=== PATIENT | female | born 1945 | race Two or more races ===

== ENCOUNTER 2024-01-21 10:41 | Inpatient (IN) | payer MEDICARE ==
[~2024-01-21] VITALS: Ht 170.2 cm; Wt 72.6 kg
[2024-01-21] MEDS ORDERED: MIRT-121 PO (12:08)
[2024-01-21] MEDS ORDERED: ASCO-352 PO (12:08)
[2024-01-21] MEDS ORDERED: DILT60TA35 PO (12:08)
[2024-01-21] MEDS ORDERED: MEGE400O6 PO (12:08)
[2024-01-21] MEDS ORDERED: POLY119P3 PO (12:08)
[2024-01-21] MEDS ORDERED: HALO1TAB PO (12:08)
[2024-01-21] MEDS ORDERED: DIVA125T32 PO (12:08)
[2024-01-21] MEDS ORDERED: MULT-594 PO (12:08)
[2024-01-21] MEDS ORDERED: BENZ0.5T43 PO (12:08)
[2024-01-21] MEDS ORDERED: HALO2TAB PO (12:08)
[2024-01-21] MEDS ORDERED: CHOL200026 PO (12:08)
[2024-01-21] MEDS ORDERED: OLAN10TA3 PO (12:08)
[2024-01-21] MEDS ORDERED: HYDR-4076 PO (12:08)
[2024-01-21] MEDS ORDERED: TRAM50TA2 PO (12:08)
[2024-01-21] MEDS ORDERED: ROSU10TA2 PO (12:08)
[2024-01-21] MEDS ORDERED: HALO5TAB PO (12:08)
[2024-01-21] MEDS ORDERED: MELA3TAB41 PO (12:08)
[2024-01-21] MEDS ORDERED: RIVA10TA PO (12:08)
[2024-01-21] MEDS ORDERED: ACET-2030 PO (12:08)
[2024-01-21] MEDS ORDERED: clonazePAM 0.5 MG TABLET PO PRN (12:30)
[2024-01-21] MEDS ORDERED: MAGNESIUM HYDROXIDE 30 ML UDC PO PRN (12:30)
[2024-01-21] MEDS ORDERED: MAG HYDROX/AL HYDROX/SIMETH 30 ML UDC PO PRN (12:30)
[2024-01-21] MEDS: BLOOD SUGAR DIAGNOSTIC 1 EACH STRIP IN ONE (12:47)
[2024-01-21] MEDS ORDERED: ACETAMINOPHEN ES 500 MG TABLET PO PRN (14:30)
[2024-01-21] MEDS: ASCORBIC ACID 500 MG TABLET PO SCH (15:01)
[2024-01-21 16:00] VITALS: BP 116/77; TEMP 98; O2SAT 100
[2024-01-21] MEDS: MEGESTROL ACETATE SUSP 400 MG/10 ML UDC PO SCH (17:47)
[2024-01-21] MEDS: hydrALAZINE HCL 25 MG TABLET PO SCH (17:48)
[2024-01-21] MEDS: DILTIAZEM HCL 30 MG TABLET PO SCH (18:10)
[2024-01-21 20:00] VITALS: BP 136/75; TEMP 97.6; O2SAT 99
[2024-01-22 07:45] LABS: CREATININE 0.5 mg/dL (0.6-1.3)
[2024-01-22 07:58] LABS: ALANINE AMINOTRANSFERASE 17 U/L (12-78); ALBUMIN 2.1 g/dL (3.4-5.0); ALKALINE PHOSPHATASE 53 U/L (46-116); ASPARTATE AMINOTRANSFERASE 12 U/L (15-37); BILIRUBIN,TOTAL 0.2 mg/dL (0.2-1.0); CALCIUM, SERUM 8.9 mg/dL (8.5-10.1); CARBON DIOXIDE 24 mmol/L (21-32); CHLORIDE 106 mmol/L (98-107); CREATININE 0.4 mg/dL (0.6-1.3); GLUCOSE 128 mg/dL (74-106); POTASSIUM 3.4 mmol/L (3.5-5.1); SODIUM SERUM 140 mmol/L (136-145); TOTAL PROTEIN, SERUM 6.6 g/dL (6.4-8.2); UREA NITROGEN, BLOOD 13 mg/dL (7-18)
[2024-01-22 08:20] LABS: CHOLESTEROL 70 mg/dL (<200); HDL CHOLESTEROL 40 mg/dL (40-60); LDL 22 mg/dL (0-99); TRIGLYCERIDES 33 mg/dL (30-150)
[2024-01-22] MEDS: ATORVASTATIN 40 MG TABLET PO SCH (08:42)
[2024-01-22] MEDS: CHOLECALCIFEROL 1,000 UNIT TABLET (VIT D3) PO SCH (08:42)
[2024-01-22] MEDS: POLYETHYLENE GLYCOL 3350 17 GM POWD.PACK PO SCH (08:42)
[2024-01-22] MEDS: MULTIVITAMINS,THERAGRAN 1 UDTAB TABLET PO SCH (08:43)
[2024-01-22 08:49] VITALS: BP 112/99; TEMP 98.6; O2SAT 97
[2024-01-22] MEDS: OLANZAPINE ZYDIS 5 MG TAB.RAPDIS SL SCH (09:40)
[2024-01-22] MEDS ORDERED: Z GUARD REMEDY 4 OZ OINT TP PRN (10:00)
[2024-01-22] MEDS: Z GUARD REMEDY 4 OZ OINT TP SCH (10:50)
[2024-01-22] MEDS: BLOOD SUGAR DIAGNOSTIC 1 EACH STRIP IN SCH (12:00)
[2024-01-22] MEDS ORDERED: DEXTROSE 50%-WATER 50 ML DISP.SYRIN IV PRN (12:00)
[2024-01-22 16:00] VITALS: BP 109/60; TEMP 97.6; O2SAT 98
[2024-01-22] MEDS: RIVAROXABAN 10 MG TABLET PO SCH (16:50)
[2024-01-22 20:00] VITALS: BP 130/81; TEMP 98.4; O2SAT 99
[2024-01-22] MEDS: MIRTAZAPINE 15 MG TABLET PO SCH (21:36)
[2024-01-22] MEDS: INSULIN REGULAR, HUMAN 100 UNIT/ML 3 ML VIAL SQ PRN (22:19)
[2024-01-23 07:34] LABS: CALCIUM, SERUM 9.4 mg/dL (8.5-10.1); CARBON DIOXIDE 25 mmol/L (21-32); CHLORIDE 106 mmol/L (98-107); CREATININE 0.5 mg/dL (0.6-1.3); GLUCOSE 116 mg/dL (74-106); POTASSIUM 3.9 mmol/L (3.5-5.1); SODIUM SERUM 141 mmol/L (136-145); UREA NITROGEN, BLOOD 9 mg/dL (7-18)
[2024-01-23 07:41] LABS: BASOPHILS % (AUTO) 0.4 % (0.0-2.0); EOSINOPHILS # (AUTO) 0.1 K/uL (0.0-0.7); EOSINOPHILS % (AUTO) 1.4 % (0.0-6.0); HEMATOCRIT 32 % (33-45); HEMOGLOBIN 10.6 g/dL (11.5-14.8); LYMPHOCYTES # (AUTO) 1.8 K/uL (0.8-4.8); LYMPHOCYTES % (AUTO) 27.2 % (20.0-44.0); MEAN CORPUSCULAR HEMOGLOBIN 30 PG (26.0-33.0); MEAN CORPUSCULAR HGB CONC 33 g/dl (31.0-36.0); MEAN CORPUSCULAR VOLUME 92 fL (82-100); MONOCYTES # (AUTO) 0.5 K/uL (0.1-1.30); MONOCYTES % (AUTO) 7.3 % (2.0-12.0); NEUTROPHILS # (AUTO) 4.1 K/uL (1.8-8.9); NEUTROPHILS % (AUTO) 63.7 % (43.0-81.0); PLATELET COUNT (AUTO) 464 K/uL (150-450); RED BLOOD CELL COUNT(AUTO) 3.52 MIL/uL (4.0-5.2); RED CELL DISTRIBUTION WIDTH 18.3 % (11.5-15.0); WHITE BLOOD COUNT (AUTO) 6.4 K/uL (4.3-11.0)
[2024-01-23 08:00] VITALS: BP 122/77; TEMP 98; O2SAT 97
[2024-01-23] MEDS: THERAHONEY GEL 1.5 OZ TUBE TP SCH (08:55)
[2024-01-23 16:00] VITALS: BP 133/64; TEMP 98.1; O2SAT 100
[2024-01-23 20:00] VITALS: BP 122/65; TEMP 98.3; O2SAT 98
[2024-01-24 08:00] VITALS: BP 113/75; TEMP 97.8; O2SAT 96
[2024-01-24] MEDS: TRAMADOL HCL 50 MG TABLET PO PRN (09:29)
[2024-01-24 16:10] VITALS: BP 153/63; TEMP 98; O2SAT 98
[2024-01-24 21:28] VITALS: BP 131/67; TEMP 98; O2SAT 98
[2024-01-25 08:00] VITALS: BP 136/91; TEMP 98.1; O2SAT 99
[2024-01-25 16:00] VITALS: BP 127/70; TEMP 98.1; O2SAT 98
[2024-01-25] MEDS: TEMAZEPAM 7.5 MG CAPSULE PO PRN (21:47)
[2024-01-26 08:00] VITALS: BP 158/71; TEMP 97.8; O2SAT 97
[2024-01-26 16:00] VITALS: BP 142/62; TEMP 97.6; O2SAT 97
[2024-01-26 16:02] LABS: APPEARANCE,URINE CLEAR (CLEAR); BILIRUBIN,URINE NEGATIVE (NEGATIVE); BLOOD, URINE NEGATIVE Ery/uL (NEGATIVE); COLOR,URINE YELLOW (YELLOW); KETONES,URINE NEGATIVE (NEGATIVE); LEUKOCYTE ESTERASE ,URINE NEGATIVE (NEGATIVE); NITRITE, URINE NEGATIVE (NEGATIVE); PROTEIN,URINE NEGATIVE (NEGATIVE); UGLUCOSE NEGATIVE (NEGATIVE)
[2024-01-26 20:43] VITALS: BP 129/66; TEMP 97.9; O2SAT 96
[2024-01-27 08:00] VITALS: BP 115/99; TEMP 98.6; O2SAT 98
[2024-01-27 16:00] VITALS: BP 124/76; TEMP 97.9; O2SAT 97
[2024-01-27 20:40] VITALS: BP 117/67; TEMP 97.8; O2SAT 98
[2024-01-28 08:00] VITALS: BP 139/76; TEMP 97.9; O2SAT 98
[2024-01-28 16:00] VITALS: BP 125/73; TEMP 97.6; O2SAT 98
[2024-01-28 20:00] VITALS: BP 131/54; TEMP 97.9; O2SAT 98
[2024-01-29 08:00] VITALS: BP 137/76; TEMP 97.6; O2SAT 96
[2024-01-29 16:00] VITALS: BP 102/53; TEMP 97.6; O2SAT 98
[2024-01-29 20:00] VITALS: BP 102/64; TEMP 97.9; O2SAT 98
[2024-01-29] MEDS: ACETAMINOPHEN 325 MG TABLET PO PRN (21:10)
[2024-01-30 08:00] VITALS: BP 132/68; TEMP 97.7; O2SAT 97
[2024-01-30 16:00] VITALS: BP 130/60; TEMP 97.7; O2SAT 98
[2024-01-30 20:00] VITALS: BP 129/75; TEMP 98; O2SAT 96
[2024-01-31 08:00] VITALS: BP 157/84; TEMP 97.7; O2SAT 100
[2024-01-31 16:00] VITALS: BP 120/65; TEMP 98.6; O2SAT 96
[2024-01-31 20:38] VITALS: BP 109/95; TEMP 98.8; O2SAT 96
[2024-02-01 08:00] VITALS: BP 142/90; TEMP 98.1; O2SAT 98
[2024-02-01 16:00] VITALS: BP 144/75; TEMP 97.9; O2SAT 98
[2024-02-01 20:00] VITALS: BP 120/71; TEMP 97.5; O2SAT 97
[2024-02-02 08:00] VITALS: BP 156/89; TEMP 98.7; O2SAT 97
[2024-02-02] MEDS: OLANZAPINE ZYDIS 5 MG TAB.RAPDIS SL SCH (09:43)
[2024-02-02 16:00] VITALS: BP 124/56; TEMP 97.9; O2SAT 97
[2024-02-02 20:40] VITALS: BP 147/79; TEMP 98; O2SAT 98
[2024-02-03 08:00] VITALS: BP 147/79; TEMP 98.6; O2SAT 98
[2024-02-03 12:46] VITALS: BP 118/62
== END 2024-02-03 15:11 | DRG 885 ==
LOC: GPS 11:07
PROVIDERS: ADMIT Nurse Practitioner Psychiatric/Mental Health; ATTEND Nurse Practitioner Acute Care
DX: F29 Unspecified psychosis not due to a substance or known physiological condition (principal); L89.613 Pressure ulcer of right heel, stage 3; E44.0 Moderate protein-calorie malnutrition; F25.0 Schizoaffective disorder, bipolar type; D64.9 Anemia, unspecified; E11.9 Type 2 diabetes mellitus without complications; I10 Essential (primary) hypertension; Z66 Do not resuscitate; Z73.6 Limitation of activities due to disability; T78.3XXA Angioneurotic edema, initial encounter; Z98.890 Other specified postprocedural states; Z85.3 Personal history of malignant neoplasm of breast; Z90.710 Acquired absence of both cervix and uterus; Z85.05 Personal history of malignant neoplasm of liver; Z87.19 Personal history of other diseases of the digestive system; E11.40 Type 2 diabetes mellitus with diabetic neuropathy, unspecified; E78.5 Hyperlipidemia, unspecified; L89.620 Pressure ulcer of left heel, unstageable; L89.610 Pressure ulcer of right heel, unstageable; R41.9 Unspecified symptoms and signs involving cognitive functions and awareness; Z79.01 Long term (current) use of anticoagulants; Z79.899 Other long term (current) drug therapy
CPT/HCPCS: 36415; 80048-TC; 80053-TC; 80061-TC; 82565-TC; 82962-TC; 84443-TC; 85025-TC; 87081-TC; J1815